=== PATIENT | female | born 1950 | race Caucasian/White ===

== ENCOUNTER 2025-05-07 13:18 | Observation (INO) | payer MEDICARE, SELFPAY ==
--- OUTSIDE RECORDS SUMMARY | 2019-04-29 16:10 | XMS_ITS | Encounter Summary ---
Author Organization [facility] Address [address] [place] [phone] Phone Care Team Providers Care Railway Traction Line Worker Name Role Phone Davide Hammond MD Primary Care Provider [phone] Encounter Details Date Type Department Care Team (Late st Contact Info) Description 04/29/2019 4:10 PM EST Hospital Encounter [facility] [address] [place] [id number] Daren Andrade, ARI [address] [place] [address] [place] [id number] Social History Tobacco Use Types Packs/Day Years Used Date Smoking Tobacco: Never Assessed Education Answer Date Recorded Are you interested in more education? Not on constance e 09/14/2022 Are you concerned about learning? Not on file 09/14/2022 No 09/14/2022 No 09/14/2022 Digital Access Answer Date Recorded No 10/15/2022 No 10/15/2022 Reliable internet access at home? Not on file 10/15/2022 Device with a working camera? Not on file Comments Unknown Sex and Gender Information Value Date Recorded Sex Assigned at Not on file Legal Sex Female 10:04 PM EDT Gender Identity Not on file Sexual Orientation Not on file documented as of this encounter Plan of Treatment Not on file documented as of this encounter Procedures Procedure Name Priority Date/Time Associated Diagnosis Comments XR HIP 2 VW LEFT PLUS PELVIS Urgent/patient waiting 04/29/2019 4:33 PM EST Closed fracture of left hip, initial encounter documented in this encounter Results * XR HIP 2 VW LEFT PLUS PELVIS (04/29/2019 4:33 PM EST) Anatomical Region Laterality Modality Hip, Pelvis Radiographic Kathy ging 04/29/2019 5:46 PM EST Impressions 04/29/2019 5:51 PM EST Acute LEFT subcapital femoral neck fracture. POS - [id number] Narrative 04/29/2019 5:51 PM EST EXAM: XR HIP 2 VW LEFT PLUS PELVIS HISTORY: * Hip trauma, fx suspected, initial exam TECHNIQUE: AP view pelvis, 2 views LEFT hip. COMPARISON: None. FINDINGS: There is an acute LEFT hip subcapital femoral neck fracture. No significant angulation. No dislocation. No additional fractures. Soft tissues are normal. Procedure Note Adelaide Carrillo MD - 04/29/2019 EXAM: XR HIP 2 VW LEFT PLUS PELVIS HISTORY: * Hip trauma, fx suspected, initial exam TECHNIQUE: AP view pelvis, 2 views LEFT hip. COMPARISON: None. FINDINGS: There is an acute LEFT hip subcapital femoral neck fracture. Nosignificant angulation. No dislocation. No additional fractures. Soft tissues are normal. IMPRESSION: Acute LEFT subcapital femoral neck fracture. POS - [id number] Daren Andrade MAINTENANCE FOREMAN IMG XR PELVIS Final Result documented in this encounter Visit Diagnoses Not on filedocumented in this encounter Care Teams Railway Traction Line Worker Relationship Specialty Start Date End Date Davide Hammond MD [email or web address] PCP - General Internal Medicine 04/29/19 documented as of this encounter Additional Source Comments The information contained in this document represents components of the legal health record. It is not the complete legal health record.[facility]
--- OUTSIDE RECORDS SUMMARY | 2019-04-29 16:10 | XMS_ITS | Encounter Summary ---
Author Organization [facility] Address [address] [place] [id number] Phone Care Team Providers Care Track Moving Machine Operator Name Role Phone Davide Hammond MD Primary Care Provider [phone] Encounter Details Date Type Department Care Team (Late st Contact Info) Description 04/29/2019 4:10 PM EST Hospital Encounter [facility] [address] [place] [id number] Daren Andrade, ARI [address] [place] [address] [place] [id number] Social History Tobacco Use Types Packs/Day Years [...] LEFT subcapital femoral neck fracture. POS - [id number] Narrative 04/29/2019 5:51 PM EST EXAM: XR [...] LEFT subcapital femoral neck fracture. POS - [id number] Daren Andrade DEER FARMER IMG XR PELVIS Final Result documented in this encounter Visit Diagnoses Not on filedocumented in this encounter Care Teams Track Moving Machine Operator Relationship Specialty Start Date End Date Davide Hammond MD [email or web address] PCP - General Internal Medicine 04/29/19 documented as of this encounter Additional Source Comments The information contained in this document represents components of the legal health record. It is not the complete legal health record.[facility]
[2025-05-07] VITALS (7 sets, daily range): BP systolic 128–190; BP diastolic 68–120; PULSE 76–105; RESP 16–19; TEMP 36.4–36.9; O2SAT 93–100; BMI 28.2; BMI 27.4
--- NOTE | ~2025-05-07 | XR_ITS ---
EXAMINATION: XR CHEST 1 VIEW HISTORY: Stroke Protocol COMPARISON: Comparison is made with the prior examination dated 10/04/2019. FINDINGS: A single AP portable view of the chest performed at 1:42 PM is submitted. The lungs are expanded and clear. There is no pleural effusion, pneumothorax, or pulmonary vascular congestion. The heart is normal in size. The bones are intact. XR/XR chest 1V IMPRESSION: No acute cardiopulmonary abnormality. Electronically signed by: Alin Caruso MD 05/07/2025 01:49 PM EST
--- NOTE | ~2025-05-07 | MR_ITS ---
CLINICAL HISTORY: left sdied facial droop, dizzy Exam: Nonenhanced MRI brain. Comparison: CT brain performed the same day. Findings: There is no cerebral edema or mass effect. White matter reveals scattered foci of T2 hyperintensity, in keeping with sequela of chronic microangiopathic disease. Moderate involutional changes are re-identified.. Diffusion weighted imaging reveals no restricted diffusion or MR evidence of acute ischemia. Susceptibility weighted imaging reveals no susceptibility artifact or evidence of intracranial hemorrhage. No sellar or parasellar lesions. Ventricular size and configuration are within normal limits. Cerebral cisterns are preserved. No significant signal abnormality seen within the paranasal sinuses or mastoid air cells. Preserved flow signal voids are present within visualized intracranial vasculature. Impression: 1. No acute intracranial abnormalities. This document has been electronically signed by: Dutch Rehman MD on 05/07/2025 18:56:04
--- NOTE | ~2025-05-07 | CT_ITS ---
EXAMINATION: CT ANGIOGRAM HEAD AND NECK CLINICAL INFORMATION: Stroke protocol. 74-year-old female, unsteady gait, abnormal speech, feeling off Negative noncontrast head CT: COMPARISON: None available. TECHNIQUE: Test bolus sequences and head and neck intravenous bolus administration 70 mL of Omnipaque 350. Helical imaging was performed in the axial plane from the aortic arch to the skull vertex. The Data was processed at the medical imaging technologist's workstation for generation of MIP sequences. Angled MIPs and volume rendered reformatted images were also generated at an offline 3D workstation. Stenoses are assessed in accordance with NASCET criteria unless otherwise indicated. This CT examination was performed using dose optimization techniques as appropriate, variously including the following: *Automated exposure control *Adjustment of mA and/or kV according to patient size (this includes techniques or standardized protocols for targeted exams where dose is matched to indication/reason for exam; i.e. extremities or head) *Use of iterative reconstruction technique FINDINGS: NECK CTA: -AORTIC ARCH: Normal in caliber. Mild atheromatous calcification. 4-vessel branching pattern. -GREAT VESSEL ORIGINS: Widely patent. No stenosis. -RIGHT COMMON CAROTID ARTERY: Normal in course and caliber to the level of the bifurcation. -CERVICAL RIGHT INTERNAL CAROTID ARTERY: Extensive calcified and soft plaque contributes to an approximate 40% luminal stenosis just after the bifurcation. -LEFT COMMON CAROTID ARTERY: Normal in course and caliber to the level of the bifurcation. -CERVICAL LEFT INTERNAL CAROTID ARTERY: Calcified and soft plaque contribute to an approximate 10% luminal stenosis just after the bifurcation. -CERVICAL RIGHT VERTEBRAL ARTERY: Dominant. Normal origin, and normal in course and caliber into the skull base. -CERVICAL LEFT VERTEBRAL ARTERY: Nondominant. Origin is from the aortic arch. Normal in course and caliber into the skull base. OTHER, SOFT TISSUES: -No lymphadenopathy or mass. No abnormal fluid collection or soft tissue swelling. -Normal thyroid. -Imaged superior mediastinal structures normal. -Imaged lung apices clear. CTA OF THE BRAIN: -INTRACRANIAL INTERNAL CAROTID ARTERIES: There is a mild luminal stenosis of the left cavernous segment (series 6, image 269). Otherwise bilaterally patent. Normally enhancing ophthalmic artery origins. -RIGHT ANTERIOR CEREBRAL ARTERY: Normal A1 segment. Normal arborization of the distal segments. -LEFT ANTERIOR CEREBRAL ARTERY: There is a slightly diminutive A1 segment. Otherwise normal arborization of the distal segments. -ANTERIOR COMMUNICATING ARTERY: Normal. -RIGHT MIDDLE CEREBRAL ARTERY: Normal M1 segment of the MCA without focal stenosis or occlusion. Normal bifurcation. Normal arborization of the distal segments. -LEFT MIDDLE CEREBRAL ARTERY: Normal M1 segment of the MCA without focal stenosis or occlusion. Normal bifurcation. Normal arborization of the distal segments. -RIGHT VERTEBRAL ARTERY V4: Mild calcification. Normal in course and caliber. Forms the basilar artery. -LEFT VERTEBRAL ARTERY V4:. Terminates as a PICA branch. -BASILAR ARTERY: Normal without focal stenosis or occlusion. Normal appearance of the proximal superior cerebellar arteries. Normal basilar tip. -RIGHT POSTERIOR CEREBRAL ARTERY: Normal P1 segment. Normal opacification of the distal CLICKING MACHINE OPERATOR segments. -LEFT POSTERIOR CEREBRAL ARTERY: Normal P1 segment. Normal opacification of the distal CLICKING MACHINE OPERATOR segments. -POSTERIOR COMMUNICATING ARTERIES: The right is normal. The left is not well seen. Normal opacification of the superior sagittal, straight, transverse, and sigmoid sinuses. No venous thrombosis. No space-occupying hemorrhage or definite evolving infarct. CT/CT angio head neck STROKE IMPRESSION: CTA NECK: 1. There is an approximate 40% stenosis of the right ICA at the origin due to mixed plaque. 2. There is an approximate 10% stenosis of the left ICA at the origin due to mixed plaque. 3. The left vertebral artery is diminutive, and takes its origin from the aortic arch directly. 4. Remainder of the examination is normal. CTA HEAD: 1. There is no significant high-grade luminal stenosis, occlusion, dissection, or aneurysm of the major intracranial arterial vasculature. 2. There is a mild stenosis of the left cavernous ICA due to soft plaque. 3. The non-dominant left vertebral artery terminates as a PICA branch. 4. The major cortical and dural venous sinuses are patent. 5. No space-occupying hemorrhage or definitive evolving infarction. Electronically signed by: Khang Morales MD 05/07/2025 02:15 PM [facility]
--- NOTE | ~2025-05-07 | CT_ITS ---
EXAMINATION: CT HEAD WITHOUT CONTRAST (STROKE PROTOCOL) CLINICAL INFORMATION: Stroke protocol. 74-year-old female, Unsteady gait, abnormal speech, feeling off COMPARISON: None available. TECHNIQUE: Contiguous axial imaging was performed from the skull base to vertex without intravenous administration of contrast. This CT examination was performed using dose optimization techniques as appropriate, variously including the following: *Automated exposure control *Adjustment of mA and/or kV according to patient size (this includes techniques or standardized protocols for targeted exams where dose is matched to indication/reason for exam; i.e. extremities or head) *Use of iterative reconstruction technique FINDINGS: There is no evidence of intracranial hemorrhage or extra-axial fluid collection. There is no mass effect, or edema. No CT evidence of acute territorial infarct. Ventricles, sulci, and cisterns are somewhat diffusely prominent, in keeping with age advanced cerebral and cerebellar volume loss. A prominent CSF space overlying the parietal convexity measuring approximately 3.9 x 4.6 x 2.7 cm in the region just posterior to the central sulcus is most likely an incidental arachnoid cyst. No underlying edema, significant mass effect, or midline shift. No hydrocephalus. Negative hyperdense MCA sign. Negative insular ribbon sign. Patchy periventricular and deep white matter hypoattenuation is consistent with mild small vessel ischemic changes. Partial empty sella present. Mild atheromatous calcification of the bilateral carotid siphons and V4 segments vertebral arteries bilaterally. Globes and orbital contents image normally. No extracranial soft tissue abnormalities. The paranasal sinuses, mastoid air cells, and tympanic cavities are normally aerated. No suspicious bony abnormalities. There are no acute fractures evident. CT/CT head for STROKE IMPRESSION: No acute intracranial abnormality. No intracranial hemorrhage. No CT evidence of acute territorial infarct. Incidental arachnoid cyst in the left parietal region just posterior to the central sulcus. This result was discussed with Dr. Trevino at 1:41 PM hours on 05/07/2025. It was ascertained that the content and urgency of the report was understood at the time of direct communication. Electronically signed by: Khang Morales MD 05/07/2025 01:46 PM [facility]
--- NOTE | 2025-05-07 13:27 | ED_ITS ---
HPI - Weakness General Chief complaint: Neuro Symptoms/Deficit Stated complaint: BLURRY VISION FACIAL DROOP Time Seen by Provider: 05/07/25 13:25 Source: patient and EMS Mode of arrival: EMS Limitations: no limitations History of Present Illness ED Provider: HPI Narrative: 74-year-old woman not on blood thinners, presenting with blurry vision, dizziness, tingling of her left side of the face, states she feels off, not herself , around 12:20 started becoming dizzy Carlos's spinning sensation however she also started having some numbness on the left side of the face and her left arm as well there was no weakness, EMS presented to the emergency department and code stroke was activated, point of care 120 blood pressure reported 190/120 in the field, 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 Related Data Allergies Allergy/AdvReac Type Severity Reaction Status Date / Time Penicillins (PCN) Allergy Unknown CHILDHOOD Verified 05/07/25 13:54 ALLERGY Review of Systems 2 Constitutional: Constitutional: Reports as per HPI [facility] Social History Social History Smoked in Last 30 Days: No Use of substances other than those prescribed or required for medical reasons: No Advance Directives: No Advance Directives Information Provided: Yes Physical Exam 2 Exam: Exam: ?General: ??looks age appropriate, anxious affect ?PERRLA, EOMI, MMM, Neck: Supple, no LAD ?CV: RRR, no obvious murmurs appreciated ?Resp: ?No wheezing rales rhonchi no stridor moving air well Abd: ?Bowel sounds are present, no tenderness no rebound no rigidity MSK: FROM, strength 5/5 all extremities Skin: Warm, dry, intact, ?Neuro: ?Alert and oriented x3, moving upper and lower extremities symmetrically, left-sided facial asymmetry, partial forehead recruitment on the left, numbness to the left side of the face and left arm but not leg, no visual field changes no nystagmus vertical or horizontal no dysmetria upper or lower extremities and I did not appreciate weakness in upper or lower extremities Vital Signs: Vital Signs: Last Vital Signs Temp 97.5 F 05/07/25 14:13 Pulse 94 05/07/25 14:13 Resp 16 05/07/25 14:13 BP 164/83 H 05/07/25 14:13 Pulse Ox 94 05/07/25 14:13 O2 Del Method Room Air 05/07/25 14:13 BMI result Body Mass Index 28.2 NIH Stroke Scale Internal: Initial- Upon Arrival Time: 13:18 Level of Consciousness: Alert Level of Consciousness Questions: Answers both questions correctly Level of Consciousness Commands: Performs both tasks correctly Best Gaze: Normal Visual: No visual loss Facial Palsy: Partial paralysis Motor Arm (Right): No drift Motor Arm (Left): No drift Motor Leg (Right): No drift Motor Leg (Left): No drift Limb Ataxia: Absent Sensory: Normal Best Language: No aphasia Dysarthia: Normal Extinction and Inattention: No abnormality Score: 2 Medications Administered Discontinued Medications Generic Name Dose Route Start Last Admin Trade Name Freq PRN Reason Stop Dose Admin Iohexol 100 ml 05/07/25 13:43 05/07/25 13:43 Iohexol 350 Mg/Ml 100 Ml Infus..Btl IV 05/07/25 13:44 85 ml ONCE ONE Administration Medical Decision Making Medical Decision Making MDM Narrative: 1:34 PM 05/07/2025 (Dr. 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 Bao Trevino): I spoke with Dr. Egan, discussed NIH score of 2, not a TNK candidate, admission for brain MRI, low dose labetalol if she is still hypotensive, baby aspirin, if she has large vessel occlusion transferred to [facility], received focal from Radiology dry scan without any bleeds. Differential Diagnosis Differential Diagnoses: The differential diagnosis associated with the presentation includes Admission/Observation Consideration of admission/observation: Escalation of care including admission/observation considered Consult Healthcare Provider Management of the patient was discussed with: Call Center Operations Manager () Lab Data [facility] Lab Attestation statement: I reviewed the patient's lab results. 05/07/25 13:36 12/19/25 13:36 Labs: Lab Results 05/07/25 05/07/25 05/07/25 Range/Units 13:21 13:22 13:36 WBC 8.6 (4.8-10.8) X10*3/uL RBC 4.55 (4.20-5.50) X10*6/uL Hgb 13.3 (12.0-16.0) g/dl Hct 39.8 (37.0-47.0) % MCV 87.5 (80.0-98.0) fL MCH 29.2 (27.0-33.0) pg MCHC 33.4 (31.0-35.0) g/dl RDW 13.3 (11.0-16.0) % Plt Count 296 (160-400) X10*3/uL MPV 9.9 (9.4-12.3) fL Immature Gran % (Auto) 0.2 (0.0-0.4) % Neut % (Auto) 56.0 (45-73) % Lymph % (Auto) 32.4 (20-40) % [place] % (Auto) 9.5 (2-11) % Eos % (Auto) 1.3 (0-4) % Baso % (Auto) 0.6 (0-2) % Lymph # (Auto) 2.8 (1.2-4.9) X10*3/uL [place] # (Auto) 0.8 (0.1-1.2) X10*3/uL Eos # (Auto) 0.1 (0.0-0.4) X10*3/uL Baso # (Auto) 0.1 (0.0-0.2) X10*3/uL Abs Immat Gran (auto) 0.02 (0.00-0.03) X10*3/uL Absolute Neuts (auto) 4.8 (2.0-8.3) x10*3/uL Absolute Nucleated RBC 0.000 (0.0-0.012) X10*3/uL Nucleated RBC % (auto) 0.0 (0.0-0.2) /100WBC PT 11.2 (11.2-13.5) SEC Whole Blood PT 11.2 (11.1-13.5) sec INR 0.9 (0.9-1.1) Whole Blood INR 0.9 (0.9-1.1) APTT 30.1 (26.7-34.1) SEC Sodium 140 (135-145) mmol/L Potassium 3.9 (3.3-5.1) mmol/L Chloride 107 (96-108) mmol/L Carbon Dioxide 24 (22-29) mmol/L Anion Gap 13 (12-20) BUN 16 (9-16) mg/dL Creatinine 0.63 (0.5-1.4) mg/dL Estim Creat Clear Calc 83.5 Estimated GFR > 60 POC Glucose 142 H (60-115) mg/dL Random Glucose 136 H (60-115) mg/dL Calcium 9.4 (8.4-10.2) mg/dL Troponin I High Sens < 2.7 (<3.5-17.0) ng/L Triglycerides 224 H (<150) mg/dL Cholesterol 249 H (<200) mg/dL LDL Cholesterol, Calc 145 H (<100) mg/dL HDL Cholesterol 60 (>40) mg/dL Independent Interpretation I performed an independent interpretation of an: EKG (99 beats per minute otherwise normal ECG without dysrhythmia, AV ag blocks or ST-T changes to suspect underlying ACS, my independent interpretation) Radiology Impression Discussion of test interpretation with radiology: I have reviewed the radiologist's reading. Radiologist Impression: CTA HEAD: 1. There is no significant high-grade luminal stenosis, occlusion, dissection, or aneurysm of the major intracranial arterial vasculature. 2. There is a mild stenosis of the left cavernous ICA due to soft plaque. 3. The non-dominant left vertebral artery terminates as a PICA branch. 4. The major cortical and dural venous sinuses are patent. 5. No space-occupying hemorrhage or definitive evolving infarction. Independent Historian Clinical information obtained from an independent historian. History obtained from or confirmed by: EMS Critical Care Time Critical Care Time Critical Care Time: Yes Total Critical Care Time: 35 Attestation: Time is exclusive of separately billable procedures. Time includes: direct patient care, patient reassessment, coordination of patient care, interpretation of data (laboratory data, pulse oximetry, arterial blood gases and chest xrays), review of patient's medical records, medical consultation and documentation of patient care. Procedures excluded from critical care time: central intravenous line placement and electrocardiography. Discharge Plan Discharge Clinical Impression: Dizziness and giddiness, Blurred vision, left eye, Facial weakness Print Language: Turkmen
[2025-05-07 13:28] LABS: Prothrombin Time Whole Bld POC 11.2 sec (11.1-13.5); ~PT, ~INR - Anti Coag Clinic 0.9 (0.9-1.1)
--- NOTE | 2025-05-07 13:28 | ECG_ITS ---
Test Reason : stroke protocol Blood Pressure : */* mmHG Vent. Rate : 99 BPM Atrial Rate : 99 BPM P-R Int : 144 ms QRS Dur : 74 ms QT Int : 338 ms P-R-T Axes : 47 -4 6 degrees QTcB Int : 433 ms Normal sinus rhythm Minimal voltage criteria for LVH, may be normal variant ( R in aVL ) Inferior infarct , age undetermined Abnormal ECG When compared with ECG of 05-Oct-2019 15:05, No significant change was found Referred By: Bao Trevino Electronically Signed By: Gage Hughes
[2025-05-07 13:29] LABS: Glucose, Whole Blood 142 mg/dL (60-115)
[2025-05-07 13:39] LABS: MANUAL DIFF FLAG NO
[2025-05-07] MEDS: iohexoL 350 MG/ML 100 ML INFUS..BTL IV (13:43)
[2025-05-07 13:46] LABS: INTERNATIONAL NORM RATIO 0.9 (0.9-1.1); Prothrombin Time 11.2 SEC (11.2-13.5)
[2025-05-07 13:48] LABS: Hematocrit 39.8 % (37.0-47.0); Hemoglobin 13.3 g/dl (12.0-16.0); Imm Gran Abs Auto 0.02 X10*3/uL (0.00-0.03); Imm Gran Pct Auto 0.2 % (0.0-0.4); Lymphocytes Absolute Auto 2.8 X10*3/uL (1.2-4.9); Mean Corpuscular HGB Conc 33.4 g/dl (31.0-35.0); Mean Corpuscular Hemoglobin 29.2 pg (27.0-33.0); Mean Corpuscular Volume 87.5 fL (80.0-98.0); NRBC Abs Auto 0.000 X10*3/uL (0.0-0.012); NRBC Pct Auto 0.0 /100WBC (0.0-0.2); Platelet Count 296 X10*3/uL (160-400); Red Blood Count 4.55 X10*6/uL (4.20-5.50); White Blood Count 8.6 X10*3/uL (4.8-10.8)
[2025-05-07 13:49] LABS: Partial Thromboplastin Time 30.1 SEC (26.7-34.1)
[2025-05-07 14:01] LABS: Anion Gap 13 (12-20); Blood Urea Nitrogen 16 mg/dL (9-16); Calcium 9.4 mg/dL (8.4-10.2); Carbon Dioxide 24 mmol/L (22-29); Chloride 107 mmol/L (96-108); Cholesterol 249 mg/dL (<200); Creatinine Clr Calc Pharmacy 83.5; Estimated Glomerular Filt Rate > 60; HDL Cholesterol 60 mg/dL (>40); Potassium 3.9 mmol/L (3.3-5.1); Sodium 140 mmol/L (135-145); Triglycerides 224 mg/dL (<150)
[2025-05-07 14:07] LABS: Troponin-I High Sensitivity < 2.7 ng/L (<3.5-17.0)
--- NOTE | 2025-05-07 14:25 | PC.NURSE ---
Pt is able to ambulate w/o diff. denies all sx at this time. No sx at this time.
--- NOTE | 2025-05-07 14:38 | MHC.STROKE ---
Met with patient and family in room 4. Pt awake, alert and oriented x 4. Pt reports that while using her ipad, she had a sudden onset of blurred vision and dizziness. Pt also reporting that I just didn't feel right however cannot elaborate on these symptoms. She decided to call 911 and reluctantly came to the ED. Upon arrival to ED pt very anxious and kept stating that she was fine and that she didn't need to be here. No focal deficits noted in ED, gait slightly unsteady when this RN assisted her to the BR. Pt was able to self correct. 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 Swallow screen completed in ED and patient passed without difficulty. Stroke Education discussed in detail with patient and family. Stroke pamphlet provided and reviewed. All questions answered. Medical hx discussed including medications, diet, activity. Pt denies smoking or alcohol. Pt reports that she participates in some holistic medicine with herbs, teas etc. Dr. Trevino discussed case with Dr. Egan Plan is for admission. Pt/family updated on plan and agreeable at this time.
[2025-05-07 14:46] LABS: Stroke Lab Use COMPLETE
--- NOTE | 2025-05-07 15:32 | P.HPHOSP_ITS ---
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 Symptoms began suddenly at around 10:00 on day of presentation. Patient reports she was sitting on her tablet and sudden onset blurry vision and dizziness. She had put down her tablet but symptoms did not resolve so she called EMS. Also noted a little bit of left facial numbness on top of her chronic left facial weakness. Denies any nausea vomiting fever. Symptoms ongoing with no relief. Present at rest. In ED CT head and CTA negative, noted to be hypertensive with blood pressure of 190/94 [facility] Medical History (Updated 05/07/25 @ 15:36 by Bright Chandler MD) Hypertension Social History Smoked in Last 30 Days: No Use of substances other than those prescribed or required for medical reasons: No Advance Directives: No Advance Directives Information Provided: Yes Meds Allergies Allergy/AdvReac Type Severity Reaction Status Date / Time Penicillins (PCN) Allergy Unknown CHILDHOOD Verified 05/07/25 13:54 ALLERGY Active Medications: Current Medications Acetaminophen (Acetaminophen 325 Mg Tablet) 650 mg PO Q6H PRN PRN Reason: Pain, Mild 1-3,fever,headache Aspirin (Aspirin Enteric Coated 81 Mg Tablet.Dr) 81 mg PO DAILY MOISES Atorvastatin Calcium (Atorvastatin Calcium 80 Mg Tablet) 80 mg PO BEDTIME MOISES Calcium Carbonate (Calcium Carbonate 750 Mg Tab.Chew) 750 mg PO Q4H PRN PRN Reason: Heartburn Enoxaparin Sodium (Enoxaparin Sodium 40 Mg/0.4 Ml Syringe) 40 mg SUBCUT Q24H MOISES Magnesium Hydroxide (Milk Of Magnesia 30 Ml Oral.Susp) 30 ml PO DAILY PRN PRN Reason: Constipation Melatonin (Melatonin 3 Mg Tablet) 6 mg PO BEDTIME PRN PRN Reason: Insomnia Physical Exam 2 Vital Signs and Narrative: Vital Signs: Last Vital Signs Temp 97.5 F 05/07/25 14:13 Pulse 88 05/07/25 15:07 Resp 18 05/07/25 15:07 BP 128/68 05/07/25 15:07 Pulse Ox 98 05/07/25 15:07 O2 Del Method Room Air 05/07/25 15:07 BMI result Body Mass Index 28.2 Results Labs 05/07/25 13:36 05/07/25 13:36 Labs: Laboratory Results - last 24 hr 05/07/25 05/07/25 05/07/25 13:21 13:22 13:36 MCV 87.5 MCH 29.2 MCHC 33.4 RDW 13.3 Plt Count 296 MPV 9.9 Immature Gran % (Auto) 0.2 Neut % (Auto) 56.0 Lymph % (Auto) 32.4 [place] % (Auto) 9.5 Eos % (Auto) 1.3 Baso % (Auto) 0.6 Lymph # (Auto) 2.8 [place] # (Auto) 0.8 Eos # (Auto) 0.1 Baso # (Auto) 0.1 Abs Immat Gran (auto) 0.02 Absolute Neuts (auto) 4.8 Absolute Nucleated RBC 0.000 Nucleated RBC % (auto) 0.0 PT 11.2 Whole Blood PT 11.2 INR 0.9 Whole Blood INR 0.9 APTT 30.1 Anion Gap 13 Estim Creat Clear Calc 83.5 Estimated GFR > 60 POC Glucose 142 H Random Glucose 136 H Calcium 9.4 Troponin I High Sens < 2.7 Triglycerides 224 H Cholesterol 249 H LDL Cholesterol, Calc 145 H HDL Cholesterol 60 Imaging Radiologist's Impressions: Impressions Head CT 05/07/25 13:31 IMPRESSION: No acute intracranial abnormality. No intracranial hemorrhage. No CT evidence of acute territorial infarct. Incidental arachnoid cyst in the left parietal region just posterior to the central sulcus. This result was discussed with Dr. Trevino at 1:41 PM hours on 05/07/2025. It was ascertained that the content and urgency of the report was understood at the time of direct communication. Electronically signed by: Khang Morales MD 05/07/2025 01:46 PM [facility] Head/Neck CTA 05/07/25 13:38 IMPRESSION: CTA NECK: 1. There is an approximate 40% stenosis of the right ICA at the origin due to mixed plaque. 2. There is an approximate 10% stenosis of the left ICA at the origin due to mixed plaque. 3. The left vertebral artery is diminutive, and takes its origin from the aortic arch directly. 4. Remainder of the examination is normal. CTA HEAD: 1. There is no significant high-grade luminal stenosis, occlusion, dissection, or aneurysm of the major intracranial arterial vasculature. 2. There is a mild stenosis of the left cavernous ICA due to soft plaque. 3. The non-dominant left vertebral artery terminates as a PICA branch. 4. The major cortical and dural venous sinuses are patent. 5. No space-occupying hemorrhage or definitive evolving infarction. Electronically signed by: Khang Morales MD 05/07/2025 02:15 PM EST RP Chest X-Ray 05/07/25 13:42 IMPRESSION: No acute cardiopulmonary abnormality. 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
--- OUTSIDE RECORDS SUMMARY | 2025-05-07 15:58 | XMS_ITS | Clinical Summary ---
Author Organization [facility] Address [address] [place], [place] [id number] Phone Care Team Providers Care Specialist Wound Care Name Role Phone Davide Hammond MD Primary Care Provider [phone] Allergies Active Allergy Reactions Criticality Noted Date Comments Penicillins 04/29/2019 Medications No known medications Active Problems No known active problems Social History Tobacco Use Types Packs/Day Years [...] on file Sexual Orientation Not on file Last Filed Vital Signs Vital Sign Reading Time Taken Comments Blood Pressure 170/98 04/29/2019 4:01 PM EST Pulse 79 04/29/2019 4:01 PM EST Temperature 36.7 C (98 F) 04/29/2019 4:01 PM EST Respiratory Rate - - Oxygen Saturation 98% 04/29/2019 4:01 PM EST Inhaled Oxygen Concentration - - Weight 70.3 kg (155 lb) 04/29/2019 4:01 PM EST Height - - Body Mass Index - - Plan of Treatment Health Maintenance Due Date Last Done Comments Adult Td,Tdap Booster 1948 LIPID PANEL 1948 DEPRESSION SCREENING 1960 SMOKING Hx and SMOKELESS TOB ACCO SCREENING 1961 HEPATITIS C SCREENING 1966 PNEUMOCOCCAL VACCINES (50+ y ears) (1 of 1 - PCV) 1998 ZOSTER VACCINES (1 of 2) 1998 OSTEOPOROSIS SCREENING INITI AL (ONE-TIME) 2013 RSV VACCINE (1 - 1-dose 75+ series) 10/24/2023 INFLUENZA VACCINE (#1) 2024 02/18/2020 COVID-19 VACCINE (1 - 2024-2 6 season) 2025 HEPATITIS A VACCINES Aged Out No long er eligible based on patient's age to complete this topic HIB VACCINES Aged Out No longer eligi ble based on patient's age to complete this topic MENINGOCOCCAL VACCINES (ACWY) Aged Out No longer eligible based on patient's age to complete this topic MENINGOCOCCAL VACCINES (B) Aged Out N o longer eligible based on patient's age to complete this topic Medical Devices Not on file Insurance MEDICARE HMO REPLACEMENT [facility] MEDICARE HMO REPLACEMENT MEDICARE HMO REPLACEMENT MEDICARE HMO REPLACEMENT MEDICARE HMO REPLAC[place] [address] [place] [address] MEDICARE HMO REPLACEMENT [facility] MEDICARE HMO REPLACEMENT [facility] [place] MEDICARE HMO REPLACEMENT Care Teams Specialist Wound Care Relationship Specialty Start Date End Date Davide Hammond MD [email or web address] PCP - General Internal Medicine 04/29/19 Additional Source Comments The information contained in this document represents components of the legal health record. It is not the complete legal health record.[facility]
--- NOTE | 2025-05-07 16:36 | PHA.MEDREC ---
Pharmacy Consult ? Medication Reconciliation Pharmacy has completed the medication reconciliation.Med rec complete, spoke to patient and compared with pharmacy claim history
[2025-05-07] MEDS: 0.9 % Sodium Chloride Flush 3 ML SYRINGE IVFLUSH (16:59)
--- NOTE | 2025-05-07 19:08 | HO.NURTONUR ---
Pt has hx of bels palsy with residual left sided facial droop. Today 1220 is looking at computer and has sudden onset blurred vision. Also has been dizzy in termittently since 1220. Most often dizziness is reproducable with movement. Pt is not on thinners. no head inj. no change in speech and no unilat weakness. Sx resolved and patient has been ambulatory w/o diff. CT and MRI of brain are negative. Pt was hypertensive at arrival but this resolved w/o intervention. Labs are unremarkable.
--- NOTE | 2025-05-07 19:54 | PC.NURSE ---
Addendum entered by Jillian Avalos RN 05/07/25 20:03: MD spoke with patient, pt is agreeable to stay. Original Note: patient states she had a brain MRI which was negative, she feels better and does not believe she needs to stay overnight. Pt states she has a disabled son at home she is afraid to leave alone. states she understood education received from surgical coordinator Laura KELLER. Dr. Padilla made aware and states he will speak with patient.
[2025-05-08] VITALS: BP 190/80; PULSE 64; RESP 16; TEMP 36.4
[2025-05-08 04:00] VITALS: BP 160/59; PULSE 59; RESP 16; TEMP 36.8
--- NOTE | 2025-05-08 07:05 | PC.NURSE ---
Patient admitted to 450 from ED as obs. A&Ox4. Pt scoring moderate falls, refusing alarms and assistance OOB. Pt encouraged to call for assistance should she become dizzy or have blurred vision, per admitting chief complaints. Pt also refusing scheduled atorvastatin, stated That stuff is poison. I do natural stuff at home . Pt hypertensive, asymptomatic. MD notified. BP improved below SBP 180's spontaneously without medication intervention. MD updated. Bed low/locked/low falls measures in place.
[2025-05-08 07:23] LABS: Hematocrit 37.8 % (37.0-47.0); Hemoglobin 12.6 g/dl (12.0-16.0); Mean Corpuscular HGB Conc 33.3 g/dl (31.0-35.0); Mean Corpuscular Hemoglobin 29.1 pg (27.0-33.0); Mean Corpuscular Volume 87.3 fL (80.0-98.0); NRBC Abs Auto 0.000 X10*3/uL (0.0-0.012); NRBC Pct Auto 0.0 /100WBC (0.0-0.2); Platelet Count 267 X10*3/uL (160-400); Red Blood Count 4.33 X10*6/uL (4.20-5.50); White Blood Count 6.0 X10*3/uL (4.8-10.8)
[2025-05-08 07:40] LABS: Anion Gap 13 (12-20); Blood Urea Nitrogen 10 mg/dL (9-16); Calcium 9.1 mg/dL (8.4-10.2); Carbon Dioxide 25 mmol/L (22-29); Chloride 108 mmol/L (96-108); Creatinine Clr Calc Pharmacy 89.4; Estimated Glomerular Filt Rate > 60; Potassium 3.6 mmol/L (3.3-5.1); Sodium 142 mmol/L (135-145)
[2025-05-08 08:00] VITALS: BP 142/73; PULSE 92; RESP 18; O2SAT 96
[2025-05-08] MEDS: Aspirin Enteric Coated 81 MG TABLET.DR PO (08:28)
[2025-05-08] MEDS: 0.9 % Sodium Chloride Flush 3 ML SYRINGE IVFLUSH (08:31)
--- NOTE | 2025-05-08 09:19 | MHC.CM.PN ---
IMM delivered. Patient lives in a home. Disabled son lives in an apt within the home. Patient assists w/ care, but son also has [employer]'s. Independent w/ all care. Denies use of DME or services. PCP @ [facility] Reports HCP is another son, Joe. Copy requested. DP: Per PT - home no services. Likely home today. Son Joe will transport.
--- NOTE | 2025-05-08 10:49 | P.DS_ITS ---
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 Symptoms began suddenly at around 10:00 on day of presentation. Patient reports she was sitting on her tablet and sudden onset blurry vision and dizziness. She had put down her tablet but symptoms did not resolve so she called EMS. Also noted a little bit of left facial numbness on top of her chronic left facial weakness. Denies any nausea vomiting fever. Symptoms ongoing with no relief. Present at rest. In ED CT head and CTA negative, noted to be hypertensive with blood pressure of 190/94 hospital course: Patient was admitted for sudden onset dizziness. MRI ruled out CVA. Symptoms resolved. For hypertension was initially allowed permissive hypertension now restarted on amlodipine. Patient is feeling back to her baseline and she will be discharged home. Time Attestation Discharge Coordination Time (in mins): 33 Quality: Safe Use of Opioids Does Pt have an Active Cancer Diagnosis on the Problem List?: No Quality: Stroke Does the patient have a stroke diagnosis?: No Physical Exam Exam: Exam: General: AO X 3, no acute distress Resp: CTA bilateral, no accessory muscles used CVS: S1,S2,RRR GI: soft, non tender, non distended Neuro: left facial droop, alert Psych: appropriate affect, appropriate insight Vital Signs: Vital Signs: Last Vital Signs Temp 98.2 F 05/08/25 04:00 Pulse 92 05/08/25 08:00 Resp 18 05/08/25 08:00 BP 142/73 H 05/08/25 08:00 Pulse Ox 96 05/08/25 08:00 O2 Del Method Room Air 05/08/25 08:00 BMI result Body Mass Index 27.4 DS: Data Data Completed and Pending Labs on day of discharge: Laboratory Results - last 24 hr 05/07/25 05/07/25 05/07/25 13:21 13:22 13:36 WBC 8.6 RBC 4.55 Hgb 13.3 Hct 39.8 MCV 87.5 MCH 29.2 MCHC 33.4 RDW 13.3 Plt Count 296 MPV 9.9 Immature Gran % (Auto) 0.2 Neut % (Auto) 56.0 Lymph % (Auto) 32.4 Kimble % (Auto) 9.5 Eos % (Auto) 1.3 Baso % (Auto) 0.6 Lymph # (Auto) 2.8 Kimble # (Auto) 0.8 Eos # (Auto) 0.1 Baso # (Auto) 0.1 Abs Immat Gran (auto) 0.02 Absolute Neuts (auto) 4.8 Absolute Nucleated RBC 0.000 Nucleated RBC % (auto) 0.0 PT 11.2 Whole Blood PT 11.2 INR 0.9 Whole Blood INR 0.9 APTT 30.1 Sodium 140 Potassium 3.9 Chloride 107 Carbon Dioxide 24 Anion Gap 13 BUN 16 Creatinine 0.63 Estim Creat Clear Calc 83.5 Estimated GFR > 60 POC Glucose 142 H Random Glucose 136 H Calcium 9.4 Troponin I High Sens < 2.7 Triglycerides 224 H Cholesterol 249 H LDL Cholesterol, Calc 145 H HDL Cholesterol 60 05/08/25 06:46 WBC 6.0 RBC 4.33 Hgb 12.6 Hct 37.8 MCV 87.3 MCH 29.1 MCHC 33.3 RDW 13.2 Plt Count 267 MPV 10.1 Immature Gran % (Auto) Neut % (Auto) Lymph % (Auto) Kimble % (Auto) Eos % (Auto) Baso % (Auto) Lymph # (Auto) Kimble # (Auto) Eos # (Auto) Baso # (Auto) Abs Immat Gran (auto) Absolute Neuts (auto) Absolute Nucleated RBC 0.000 Nucleated RBC % (auto) 0.0 PT Whole Blood PT INR Whole Blood INR APTT Sodium 142 Potassium 3.6 Chloride 108 Carbon Dioxide 25 Anion Gap 13 BUN 10 Creatinine 0.58 Estim Creat Clear Calc 89.4 Estimated GFR > 60 POC Glucose Random Glucose 98 Calcium 9.1 Troponin I High Sens Triglycerides Cholesterol LDL Cholesterol, Calc HDL Cholesterol Discharge Plan Discharge Anticipated Discharge Date/Time: 12/20/25 10:48 Patient Disposition: Home, Self-Care Discharge Diagnosis: Dizziness Referrals: [facility] [Primary Care Provider, Primary Care] - 1 Week Discharge Medications: Continued amlodipine 10 mg Tablet 10 mg PO DAILY Discharge Orders: Discharge Order (Routine); Ordered 05/08/25 Ordered By: Bright Chandler Diet: Advance to usual diet Activity on Discharge: As tolerated Stand Alone Forms: Patient Portal Discharge page Print Language: Armenian Care Plan Goals: Recovery Health Concerns: Dizziness Plan of Treatment: Resolved Assessment: See above
[2025-05-08 11:10] VITALS: BP 146/73; PULSE 65; RESP 19; O2SAT 98
--- OUTSIDE RECORDS SUMMARY | 2025-05-11 13:58 | XMS_ITS | Clinical Summary ---
Author Organization [facility] Address [address] [place], [place] [id number] Phone Care Team Providers Care Automatic Pinsetter Mechanic Name Role Phone Davide Hammond MD Primary Care Provider [phone] Allergies Active Allergy Reactions Criticality Noted Date [...] REPLACEMENT MEDICARE HMO REPLACEMENT MEDICARE HMO REPLACEMENT [place] [address] [place] [address] MEDICARE HMO REPLACEMENT [facility] MEDICARE HMO REPLACEMENT [facility] [place] MEDICARE HMO REPLACEMENT Care Teams Automatic Pinsetter Mechanic Relationship Specialty Start Date End Date Davide Hammond MD [email or web address] PCP - General Internal Medicine 04/29/19 Additional Source Comments The information contained in this document represents components of the legal health record. It is not the complete legal health record.[facility]
== END 2025-05-08 12:02 | disposition home or self-care (01) ==
LOC: HO.ED 14:33 → HO.IMC 20:07 → HO.EDOVER 05-11 12:55 → HO.IMC 05-11 12:55
PROVIDERS: Admitting Provider Internal Medicine; Emergency Provider Emergency Medicine; Visit Provider Internal Medicine
DX: R42 Dizziness and giddiness (principal); I10 Essential (primary) hypertension; H53.8 Other visual disturbances; R20.2 Paresthesia of skin; R20.0 Anesthesia of skin; R26.81 Unsteadiness on feet; R29.810 Facial weakness; Z79.899 Other long term (current) drug therapy
CPT/HCPCS: 36415; 70450; 70496; 70498; 70551; 71045; 80048; 80061; 82947; 84484; 85025; 85027; 85610; 85730; 93005; 97161; 97165; 99222; 99285; Q9967

== ENCOUNTER → 2025-05-07 13:28 | Outpatient (BNV) | payer MEDICARE, SELFPAY | PROVIDERS: Admitting Provider Internal Medicine; Emergency Provider Emergency Medicine; Visit Provider Internal Medicine Cardiovascular Disease | DX: R94.31 Abnormal electrocardiogram [ECG] [EKG] (principal) | CPT/HCPCS: 93010 ==

== ENCOUNTER → 2025-05-07 13:28 | Outpatient (BNV) | payer MEDICARE, SELFPAY | PROVIDERS: Emergency Provider Emergency Medicine; Visit Provider Radiology Diagnostic Radiology | DX: I65.22 Occlusion and stenosis of left carotid artery (principal); R42 Dizziness and giddiness; R29.810 Facial weakness; Z03.89 Encounter for observation for other suspected diseases and conditions ruled out | CPT/HCPCS: 70450; 70496; 70498; 70551; 71045 ==

== ENCOUNTER → 2025-05-07 15:31 | Outpatient (BNV) | payer MEDICARE, SELFPAY | PROVIDERS: Admitting Provider Internal Medicine; Emergency Provider Emergency Medicine; Visit Provider Internal Medicine | DX: I10 Essential (primary) hypertension (principal) | CPT/HCPCS: 99222 ==